=== PATIENT | female | born 1955 | race Caucasian/White ===

== ENCOUNTER 2017-08-19 08:00 | Outpatient (CLI) | payer OTHER | END 2017-08-19 08:01 | disposition home or self-care (01) | LOC: LAB.R 08:00 | PROVIDERS: ATTEND Family Medicine | DX: N39.0 Urinary tract infection, site not specified (principal) | CPT/HCPCS: 87086 ==

== ENCOUNTER 2017-09-02 08:00 | Outpatient (CLI) | payer OTHER | END 2017-09-02 08:01 | disposition home or self-care (01) | LOC: LAB.R 08:00 | PROVIDERS: ATTEND Family Medicine | DX: N39.0 Urinary tract infection, site not specified (principal) | CPT/HCPCS: 87086 ==

== ENCOUNTER 2018-09-22 10:34 | Outpatient (CLI) | payer OTHER, BC ==
--- NOTE | 2018-09-22 11:28 | XRAY Report ---
Reason: KNEE PAIN,RIGHT Procedure Date: 09/22/2018 Accession Number: [id number] / [id number] Procedure: WCP - Knee 3 View RT CPT Code: FULL RESULT: EXAM: RIGHT KNEE RADIOGRAPHY EXAM DATE: 09/22/2018 10:45 AM. CLINICAL HISTORY: Chronic knee pain, right. COMPARISON: KNEE 2 VIEW LT 05/05/2018 2:23 PM. TECHNIQUE: 3 views. FINDINGS: Bones: Normal. No fractures or bone lesions. Joints: Well rounded calcific bodies are seen projecting over the joint space and popliteal fossa on the lateral view. There is a joint effusion. There is at least mild to moderate joint space narrowing of the weightbearing compartments. [place] view demonstrates mild joint space narrowing of the lateral patellar facet with lateral translation and marginal osteophytosis. Medial facet of the patella demonstrates a possible irregularity of the osseous surface. Soft Tissues: Normal. No soft tissue swelling. IMPRESSION: Tricompartmental degenerative changes with possible defect on the medial aspect of the patella. RADIA
== END 2018-09-22 10:35 | disposition home or self-care (01) ==
LOC: DI.WCP 10:34
PROVIDERS: ATTEND Family Medicine
DX: M17.11 Unilateral primary osteoarthritis, right knee (principal)

== ENCOUNTER 2018-10-01 11:40 | Outpatient (CLI) | payer BC, OTHER ==
--- NOTE | 2018-10-01 12:06 | CT Report ---
Reason: DIZZINESS/VERTIGO Procedure Date: 10/01/2018 Accession Number: [id number] / [id number] Procedure: CT - HEAD WO CPT Code: FULL RESULT: EXAM: CT HEAD EXAM DATE: 10/01/2018 11:54 AM. CLINICAL HISTORY: DIZZINESS/VERTIGO. COMPARISON: None. TECHNIQUE: Multiaxial CT images were obtained from the foramen magnum to the vertex. Reformats: Sagittal and coronal. IV contrast: None. In accordance with CT protocol optimization, one or more of the following dose reduction techniques were utilized for this exam: automated exposure control, adjustment of mA and/or KV based on patient size, or use of iterative reconstructive technique. FINDINGS: Parenchyma: No acute intracranial abnormality. No mass-effect or hemorrhage. There is a small nonspecific presumed chronic region of low density in the left subcortical keith matter. There are 2 similar-appearing low-density lesions in the left parietal subcortical white matter. Extraaxial Spaces: Normal for age. No subdural or epidural collections identified. Ventricles: Normal in size and position. Sinuses and Orbits: Imaged paranasal sinuses, orbits, and mastoids show no significant abnormality. Bones: No evidence of fracture or calvarial defect. Other: None. IMPRESSION: 1. No acute intracranial process. No evidence of hemorrhage or mass-effect. 2. There are 2 small nonspecific regions of subcortical white matter low density located in the left frontal lobe and left parietal lobe, respectively. No associated mass-effect or edema. Consider MRI brain without and with IV contrast for further evaluation. RADIA
== END 2018-10-01 11:41 | disposition home or self-care (01) ==
LOC: DI 11:40
PROVIDERS: ATTEND Family Medicine
DX: R42 Dizziness and giddiness (principal)
CPT/HCPCS: 70450

== ENCOUNTER 2018-10-03 08:01 | Outpatient (CLI) | payer OTHER, BC ==
[2018-10-03] MEDS ORDERED: GADOBUTROL 10 MMOL/10 ML VIAL IV ONE (08:55)
--- NOTE | 2018-10-05 09:26 | MRI Report ---
Reason: ABNORMAL FINDINGS ON DIAGNOSTIC IMAGING OF OTHER S Procedure Date: 10/03/2018 Accession Number: [id number] / [id number] Procedure: MRI - Brain W/WO CPT Code: FULL RESULT: EXAM: MRI BRAIN WITHOUT AND WITH CONTRAST EXAM DATE: 10/03/2018 09:00 AM. CLINICAL HISTORY: Abnormal CT findings in the setting of dizziness/vertigo COMPARISON: CT head 10/01/2018. TECHNIQUE: Multiplanar, multisequence T1-weighted and fluid-sensitive MR sequences of the brain were performed. Sequences optimized for routine evaluation. Other: None. IV Contrast: Without and with contrast, 8.5 cc of Gadavist. FINDINGS: Multifocal greater than 10 diffusion restriction demonstrated in the subcortical frontal and parietal white matter including in the subcortical superior frontal lobes, right lateral callosal genu, right posterior allred radiata, left posterior allred radiata and subcortical left parietal lobe and left temporal stem. There is a focal diffusion restriction in the left posterior allred radiata which demonstrates central hypointensity/FLAIR hypointensity. There is chronic infarct in the left thalamus. There is also chronic infarct in the left anterior centrum semiovale. Postcontrast sequence demonstrates no abnormal enhancement. In the infratentorial compartment, minimal ill-defined T2 hyperintensity seen in the right paracentral mike. Limited evaluation of the arterial and dural venous sinus structures appear unremarkable. Gradient echo sequence demonstrates no focal abnormalities. There is no abnormal enhancement along the internal auditory canals or membranous labyrinth. IMPRESSION: 1. Multifocal greater than 10 foci of diffusion abnormalities are seen throughout the cerebral white matter. There are T1 hypointense, T2 FLAIR hyperintense lesions typical for chronic lacunar type infarcts in the anterior left centrum semiovale, posterior left allred radiata and left thalamus. 2. Differential consideration includes multifocal acute lacunar type infarcts in the setting of severe uncontrolled microvascular angiopathy (hypertension/diabetes), inflammatory disorder such as vasculitis, another possibility is demyelinating disease although the lack of enhancement associated with diffusion abnormality is atypical for acute demyelination and multiple sclerosis. 3. Suggest further evaluation with CT angiogram head and neck as well as Neurology consultation. The call report notification system was initiated by Dr. Ezequiel Gross at 08:47 AM on 10/05/2018. The above call report findings were discussed with Connie Cooper by Dr. Ezequiel Gross at 09:16 AM on 10/05/2018.
== END 2018-10-03 08:02 | disposition home or self-care (01) ==
LOC: DI 08:01
PROVIDERS: ATTEND Family Medicine
DX: G93.9 Disorder of brain, unspecified (principal); R42 Dizziness and giddiness
CPT/HCPCS: 70553

== ENCOUNTER 2018-10-06 17:43 | Outpatient (CLI) | payer OTHER, BC ==
[2018-10-06] MEDS ORDERED: IOVERSOL 320 100 ML VIAL IVP ONE ×2 (17:58→18:27)
--- NOTE | 2018-10-06 20:14 | CT Report ---
Reason: CVA,ABNORMAL FINDINGS ON DIAGNOSTIC IMGAING OF OTH Procedure Date: 10/06/2018 Accession Number: [id number] / [id number] Procedure: CT - ANGIO HEAD W CPT Code: FULL RESULT: EXAM: CT ANGIOGRAM HEAD. CT SCAN OF THE HEAD WITHOUT AND WITH CONTRAST. EXAM DATE: 10/06/2018 06:19 PM CLINICAL HISTORY: 63-year-old female with history of cerebrovascular accident and headaches. Abnormal findings on previous imaging COMPARISON: CT head 10/01/2018, MR brain 10/03/2018 TECHNIQUE: - CT Scan Head: Using a multidetector scanner, axial images were acquired from the foramen magnum to the skull vertex prior to and following contrast administration. - CT Angiogram: Using a multidetector scanner, high-resolution axial images were acquired from the skull base through vertex following rapid infusion of intravenous contrast. Reformats: Multiplanar MIP reformats were reconstructed. Nascet criteria used for stenosis measurement. IV Contrast: 80 cc Optiray [address] protocol optimization, one or more of the following dose reduction techniques were utilized for this exam: automated exposure control, adjustment of mA and/or KV based on patient size, or use of iterative reconstructive technique. FINDINGS: NON-CONTRAST HEAD: Parenchyma: As better demonstrated on the prior MR on 10/03/2018, the CT also demonstrates multiple small recent infarctions as evidenced by parenchymal hypodensities within cerebral hemispheres bilaterally. No large territorial infarction. No hemorrhagic transformation. No intraparenchymal hemorrhage. No evidence of mass, or midline shift. Jesus-white differentiation is distinct. Extraaxial Spaces: Normal for age. No subdural or epidural collections identified. Ventricles: Normal in size and position. Sinuses and orbits: Imaged paranasal sinuses, orbits, and mastoids show no significant abnormality. Bones: No evidence of fracture or calvarial defect. Other: None. POST-CONTRAST HEAD: No abnormal enhancement. CT ANGIOGRAM HEAD: RIGHT: Internal Carotid artery: Mild atherosclerosis, no hemodynamically significant narrowing Anterior Cerebral Artery: Patent without significant stenosis, aneurysm, or vascular malformation. Middle Cerebral Artery: Patent without significant stenosis, aneurysm, or vascular malformation. Posterior Cerebral Artery: Patent without significant stenosis, aneurysm, or vascular malformation. Posterior Communicating Artery: Patent. No aneurysm. Vertebral Artery: The dominant vertebral artery. Patent without significant stenosis. No evidence of dissection. LEFT: Internal Carotid artery: Mild atherosclerosis, no hemodynamically significant narrowing Anterior Cerebral Artery: Patent without significant stenosis, aneurysm, or vascular malformation. Middle Cerebral Artery: Patent without significant stenosis, aneurysm, or vascular malformation. Posterior Cerebral Artery: origin. Patent without significant stenosis, aneurysm, or vascular malformation. Posterior Communicating Artery: Patent. No aneurysm. Vertebral Artery: There is PICA termination of the small left vertebral artery Patent without significant stenosis. No evidence of dissection. CENTRAL: Anterior Communicating Artery: Patent. No aneurysm. Basilar Artery: Patent without significant stenosis. No aneurysm. DURAL VENOUS SINUSES AND MAJOR CENTRAL VEINS: Patent. IMPRESSION: CT Head: As better demonstrated on the prior MR on 10/03/2018, the CT also demonstrates multiple small recent infarctions as evidenced by parenchymal hypodensities within cerebral hemispheres bilaterally. No large territorial infarction. No hemorrhagic transformation. CTA Head: Mild atherosclerosis detailed above. No significant vascular stenosis, dissection, or aneurysm. RADIA
--- NOTE | 2018-10-06 20:23 | CT Report ---
Reason: CVA,ABNORMAL FINDINGS ON DIAGNOSTIC IMGAING OF [facility] Procedure Date: 10/06/2018 Accession Number: [id number] / [id number] Procedure: CT - ANGIO NECK W/WO CPT Code: FULL RESULT: EXAM: CT ANGIOGRAM NECK EXAM DATE: 10/06/2018 06:19 PM. CLINICAL HISTORY: 62-year-old female. Cerebrovascular accident, headaches. Abnormal findings on prior study. COMPARISON: Concurrently obtained CTA head, MR brain 10/03/2018 TECHNIQUE: Routine axial helical imaging was performed from the skull base through the aortic arch. Reconstructions: Routine multiplanar 3D MIP reconstructions. IV Contrast: 80 cc Optiray 320. Evaluation of arterial stenosis is based on a NASCET method of measurement. In accordance with CT protocol optimization, one or more of the following dose reduction techniques were utilized for this exam: automated exposure control, adjustment of mA and/or KV based on patient size, or use of iterative reconstructive technique. FINDINGS: Right Carotid: The common carotid, internal carotid, and external carotid arteries are widely patent. No dissection, significant atherosclerotic plaque, or calcification identified. Left Carotid: The common carotid, internal carotid, and external carotid arteries are widely patent. No dissection, significant atherosclerotic plaque, or calcification identified. Vertebrals: The right vertebral artery is dominant. There is PICA termination of the small left vertebral artery The vertebrobasilar system shows no stenoses. Intracranial Circulation: Concurrently obtained CTA head is dictated separately. Other: The visualized lung apices are clear. Mild to moderate multilevel degenerative spondylosis. The visualized soft tissues of the neck demonstrate no acute abnormality. IMPRESSION: 1. Unremarkable neck CT angiogram. No hemodynamically significant stenoses. 2. Concurrently obtained CTA head is dictated separately. RADIA
== END 2018-10-06 17:44 | disposition home or self-care (01) ==
LOC: DI 17:43
PROVIDERS: ATTEND Family Medicine
DX: I63.9 Cerebral infarction, unspecified (principal); R93.89 Abnormal findings on diagnostic imaging of other specified body structures; R42 Dizziness and giddiness; I65.23 Occlusion and stenosis of bilateral carotid arteries
CPT/HCPCS: 70496; 70498; Q9967

== ENCOUNTER 2018-10-07 08:55 | Outpatient (CLI) | payer OTHER, BC | END 2018-10-07 08:56 | disposition home or self-care (01) | LOC: DI 08:55 | PROVIDERS: ATTEND Family Medicine | DX: I63.9 Cerebral infarction, unspecified (principal); R42 Dizziness and giddiness; R93.89 Abnormal findings on diagnostic imaging of other specified body structures | CPT/HCPCS: 93306 ==

== ENCOUNTER 2018-10-31 11:31 | Emergency (ER) | payer BC, OTHER ==
--- NOTE | 2018-10-31 11:59 | ED Physician Documentation ---
PD HPI HEAD INJURY - Stated complaint Stated Complaint: FALL/BEHAVIOR CHANGE - Chief complaint Chief Complaint: Trauma Hd/Nk - History obtained from History obtained from: Patient, Family - History of Present Illness Mechanism of head injury: Fell Where head injury occurred: Home Timing - onset: Yesterday Quality of pain: Pain Associated symptoms: Other (acting withdrawn having problems with falls). No: LOC, AMS, Amnesia, Nausea / vomiting, Neck pain, Paresthesias, Seizures, Ear drainage, Nasal drainage Symptoms improve with: Rest Contributing factors: Anticoagulated (clopidigrel) Similar symptoms before: Has not had sx before Recently seen: Other - Additional information Additional information: 63-year-old female who has had some problems with falls recently has fallen and hit her head. Family notes that she has been withdrawn today and not acting her usual self. They are concerned and brought her here to the emergency department she has not vomited the patient herself states that she does not feel well but is not more specific than that. She has a headache but not a specific area of her head hurts. She has been recently worked up for these falls and including echocardiogram recently done. She is on a monitor as she has had prior CVA which was unrecognized.She has a problem with her blood pressure elevating when she stands. PD PAST MEDICAL HISTORY - Past Medical History Endocrine/Autoimmune: Type 2 diabetes GI: GERD Musculoskeletal: Chronic back pain - Past Surgical History Past Surgical History: Yes General: Cholecystectomy HEENT: Tonsil/Adenoidectomy - Present Medications Home Medications: Ambulatory Orders Medication Instructions Recorded Confirmed Atenolol 0 mg ORAL DAILY 01/07/16 01/07/16 Hydrocodone/Acetaminophen [Vicodin 1 tab ORAL TID PRN 01/07/16 01/07/16 5-300 mg Tablet] Levothyroxine [Synthroid] 0 mcg ORAL DAILY 01/07/16 01/07/16 Lisinopril 0 mg ORAL DAILY 01/07/16 01/07/16 Loperamide HCl [Imodium A-D] 1 tab ORAL DAILY 01/07/16 01/07/16 Multivitamin [Multivitamins] 1 tab ORAL DAILY 01/07/16 01/07/16 [place]-3 Fatty Acids [Fish Oil] 1 tab ORAL DAILY 01/07/16 01/07/16 Omeprazole [PriLOSEC] 0 mg ORAL DAILY 01/07/16 01/07/16 metFORMIN [Glucophage] 0 mg ORAL DAILY 01/07/16 01/07/16 - Allergies Allergies/Adverse Reactions: Allergies Allergy/AdvReac Type Severity Reaction Status Date / Time pseudoephedrine HCl * Allergy Rash Verified 01/07/16 18:30 [From Actifed] triprolidine HCl * Allergy Rash Verified 10/31/18 11:38 [From Actifed] - Social History Does the pt smoke?: No Smoking Status: Never smoker Does the pt drink ETOH?: Yes Does the pt have substance abuse?: No - Immunizations Immunizations are current?: Yes PD ED PE NORMAL - Vitals Vital signs reviewed: Yes - General General: Alert and oriented X 3, Well developed/nourished, Other (with drawn and prefers eyes closed. ) - HEENT HEENT: Atraumatic, PERRL, EOMI, Ears normal - Neck Neck: Supple, no meningeal sign, No bony TTP - Cardiac Cardiac: No murmur, Other (tachy to 120) - Respiratory Respiratory: No respiratory distress, Clear bilaterally - Abdomen Abdomen: Normal bowel sounds, Soft, Non tender, Non distended, No organomegaly - Back Back: No CVA TTP, No spinal TTP - Derm Derm: Normal color, Warm and dry, No rash - Extremities Extremities: No deformity, No edema - Neuro Neuro: Alert and oriented X 3, development educator 2-12 intact, No motor deficit, No sensory deficit, Normal speech Eye Opening: Spontaneous Motor: Obeys Commands Verbal: Oriented GCS Score: 15 - Psych Psych: Normal mood, Normal affect Results - Vitals Vitals: Vital Signs - 24 hr 10/31/18 10/31/18 10/31/18 11:35 12:47 15:19 Temperature 36.3 C L Heart Rate 115 H 101 H 88 Respiratory 20 20 19 Rate Blood Pressure 146/86 H 131/84 H 170/90 H O2 Saturation 95 98 100 Oxygen O2 Source Room air - Labs Labs: Laboratory Tests 10/31/18 10/31/18 10/31/18 11:05 11:05 11:05 WBC 7.5 RBC 3.92 L Hgb 13.7 Hct 38.9 MCV 99.2 H MCH 34.9 H MCHC 35.2 RDW 11.9 L Plt Count 258 MPV 9.8 Neut # (Auto) 4.9 Lymph # (Auto) 1.8 [place] # (Auto) 0.6 Eos # (Auto) 0.2 Baso # (Auto) 0.0 Absolute Nucleated RBC 0.00 Nucleated RBC % 0.0 Sodium 141 Potassium 4.6 Chloride 101 Carbon Dioxide 24 Anion Gap 16.0 H BUN 20 Creatinine 1.3 H Estimated GFR (MDRD) 41 L Glucose 114 H Calcium 10.1 Total Bilirubin 1.2 H AST 30 ALT 28 Alkaline Phosphatase 91 Troponin I < 0.04 Total Protein 8.1 Albumin 4.5 Globulin 3.6 Albumin/Globulin Ratio 1.3 Lipase 18 L Urine Color Urine Clarity Urine pH Ur Specific [place] Urine Protein Urine Glucose (UA) Urine Ketones Urine Occult Blood Urine Nitrite Urine Bilirubin Urine Urobilinogen Ur Leukocyte Esterase Ur Microscopic Review Urine Culture Comments Urine Opiates Screen Ur Oxycodone Screen Urine Methadone Screen Ur Propoxyphene Screen Ur Barbiturates Screen Ur Tricyclics Screen Ur Phencyclidine Scrn Ur Amphetamine Screen U Methamphetamines Scrn U Benzodiazepines Scrn Urine Cocaine Screen U Cannabinoids Screen Ethyl Alcohol < 5.0 10/31/18 11:55 WBC RBC Hgb Hct MCV MCH MCHC RDW Plt Count MPV Neut # (Auto) Lymph # (Auto) [place] # (Auto) Eos # (Auto) Baso # (Auto) Absolute Nucleated RBC Nucleated RBC % Sodium Potassium Chloride Carbon Dioxide Anion Gap BUN Creatinine Estimated GFR (MDRD) Glucose Calcium Total Bilirubin AST ALT Alkaline Phosphatase Troponin I Total Protein Albumin Globulin Albumin/Globulin Ratio Lipase Urine Color YELLOW Urine Clarity CLEAR Urine pH 6.5 Ur Specific [place] <=1.005 Urine Protein TRACE Urine Glucose (UA) NEGATIVE Urine Ketones TRACE Urine Occult Blood NEGATIVE Urine Nitrite NEGATIVE Urine Bilirubin NEGATIVE Urine Urobilinogen 0.2 (NORMAL) Ur Leukocyte Esterase NEGATIVE Ur Microscopic Review NOT INDICATED Urine Culture Comments NOT INDICATED Urine Opiates Screen POSITIVE H Ur Oxycodone Screen NEGATIVE Urine Methadone Screen NEGATIVE Ur Propoxyphene Screen NEGATIVE Ur Barbiturates Screen NEGATIVE Ur Tricyclics Screen POSITIVE H Ur Phencyclidine Scrn NEGATIVE Ur Amphetamine Screen NEGATIVE U Methamphetamines Scrn NEGATIVE U Benzodiazepines Scrn NEGATIVE Urine Cocaine Screen NEGATIVE U Cannabinoids Screen NEGATIVE Ethyl Alcohol - Rads (name of study) CT head Radiology: Prelim report reviewed (Impression: 1. No intracranial hemorrhage or skull fracture. Moderate patchy chronic small vessel ischemic change in the bi lateral cerebral white matter, as before. No current CT evidence of acute CVA.), EMP read indepedently, See rad report Procedures - IVC sono (time) 1155 Bedside IVC sono: IVC measures (cm) (0.92), Dehydration (est 1-2 liter deficit) PD MEDICAL DECISION MAKING - ED course Complexity details: reviewed old records, reviewed results, re-evaluated patient, considered differential, d/w patient, d/w family ED course: 63 y/o female with prior history of silent CVA and TIA has had an episode yesterday of word searching and confusion, associated with caring for her grandchildren. She is not confused today and appears to be interacting normally has an NIHSS of 0. She is tachy and hypertensive on arrival to the ED and she is found to be dehydrated on interrogation of the IVC, and significantly, on the order of 2 liter deficit. She is diabetic and I suspect she may be running dry chronically. She is hydrated with 2 liters NS with improvement and she is discharged to home. I suspect the event she had yesterday is related to the dehydration and transient ischemia to a poorly supplied area. I have shared this with the patient and her family and she will work harder on staying hydrated. She is being monitored for afib as part of outpatient work up. She did not have afib here. I did discuss alcohol and narcotic use with the patient and I did not think the episode yesterday was related to either. Departure - Departure Disposition: 01 Home, Self Care Clinical Impression: Dehydration, TIA (transient ischemic attack) Condition: Stable Instructions: ED Dehydration, ED Transient Ischemic Attack Follow-Up: Connie Cooper MD [Primary Care Provider] -
[2018-10-31 12:36] LABS: BASOPHILS % (AUTO) 0.5 %; EOSINOPHILS # (AUTO) 0.2 10^3/uL (0.0-0.7); HGB - HEMOGLOBIN 13.7 g/dL (12.0-16.0); LYMPHOCYTES # (AUTO) 1.8 10^3/uL (1.5-3.5); LYMPHOCYTES % (AUTO) 23.8 %; MEAN CORPUSCULAR HEMOGLOBIN 34.9 pg (27.0-31.0); MEAN CORPUSCULAR HGB CONC 35.2 g/dL (32.0-36.0); MEAN CORPUSCULAR VOLUME 99.2 fL (81.0-99.0); MEAN PLATELET VOLUME 9.8 fL (7.9-10.8); MONOCYTES # (AUTO) 0.6 10^3/uL (0.0-1.0); MONOCYTES % (AUTO) 7.6 %; NEUTROPHILS # (AUTO) 4.9 10^3/uL (1.5-6.6); NEUTROPHILS % (AUTO) 65.2 %; PLT - PLATELET COUNT 258 10^3/uL (130-450); RED BLOOD COUNT 3.92 10^6/uL (4.20-5.40); RED CELL DISTRIBUTION WIDTH 11.9 % (12.0-15.0); WHITE BLOOD COUNT 7.5 x10^3/uL (4.8-10.8)
--- NOTE | 2018-10-31 12:43 | CT Report ---
Reason: fall altered LOC Procedure Date: 10/31/2018 Accession Number: [id number] / [id number] Procedure: CT - HEAD WO CPT Code: FULL RESULT: EXAM: CT HEAD EXAM DATE: 10/31/2018 12:19 PM. CLINICAL HISTORY: Fall altered LOC. COMPARISON: HEAD ANGIO 10/06/2018 6:10 PM BRAIN W/WO 10/03/2018 8:28 AM. TECHNIQUE: Multiaxial CT images were obtained from the foramen magnum to the vertex. Reformats: Sagittal and coronal. IV contrast: None. In accordance with CT protocol optimization, one or more of the following dose reduction techniques were utilized for this exam: automated exposure control, adjustment of mA and/or KV based on patient size, or use of iterative reconstructive technique. FINDINGS: Parenchyma: As before, there is moderate patchy hypodensity in the bilateral cerebral white matter consistent with chronic small vessel ischemic change. No new lobar or high density lesions are identified. No mass-effect. Jesus-white differentiation is intact. Extraaxial Spaces: Normal for age. No subdural or epidural collections identified. Ventricles: Normal in size and position. Sinuses and Orbits: Imaged paranasal sinuses, orbits, and mastoids show no significant abnormality. There is opacification of an anterior left ethmoid air cell, as before. Bones: No evidence of fracture or calvarial defect. Other: No scalp contusion is identified. IMPRESSION: 1. No intracranial hemorrhage or skull fracture. 2. Moderate patchy chronic small vessel ischemic change in the bilateral cerebral white matter, as before. No current CT evidence of acute CVA. RADIA
[2018-10-31 12:50] LABS: ALBUMIN 4.5 g/dL (3.2-5.5); ALBUMIN/GLOBULIN RATIO 1.3 (1.0-2.2); ALKALINE PHOSPHATASE 91 IU/L (42-121); ALT ALANINE AMINOTRANSFERASE 28 IU/L (10-60); AST ASPARTATE AMINOTRANSFERASE 30 IU/L (10-42); BILIRUBIN,TOTAL 1.2 mg/dL (0.2-1.0); BUN - BLOOD UREA NITROGEN 20 mg/dL (6-20); CALCIUM 10.1 mg/dL (8.5-10.3); CARBON DIOXIDE - CO2 24 mmol/L (21-32); CHLORIDE 101 mmol/L (101-111); CREATININE 1.3 mg/dL (0.4-1.0); GFR - MDRD 41 (>89); GLUCOSE 114 mg/dL (70-100); LIPASE 18 U/L (22-51); SODIUM 141 mmol/L (135-145); TOTAL PROTEIN 8.1 g/dL (6.7-8.2)
[2018-10-31] MEDS ORDERED: SODIUM CHLORIDE 0.9% 1,000 ML IV ONE ×2 (12:56→14:04)
[2018-10-31 13:06] LABS: MUDS CUTOFF CONCENTRATIONS CUTOFF CONC BELOW:
[2018-10-31 13:08] LABS: BILIRUBIN,URINE NEGATIVE (NEGATIVE); GLUCOSE, URINE (UA) NEGATIVE (NEGATIVE); KETONES,URINE (UA) TRACE mg/dL (NEGATIVE); LEUKOCYTE ESTERASE, URINE NEGATIVE (NEGATIVE); NITRITE,URINE NEGATIVE (NEGATIVE); OCCULT BLOOD,URINE NEGATIVE (NEGATIVE); PH,URINE 6.5 PH (5.0-7.5); PROTEIN,URINE TRACE mg/dL (NEGATIVE); UROBILINOGEN,URINE 0.2 (NORMAL) E.U./dL (NORMAL)
[2018-10-31 13:12] LABS: CLARITY,URINE CLEAR (CLEAR)
[2018-10-31 13:21] LABS: AMPHETAMINE SCREEN,URINE NEGATIVE (NEGATIVE); BENZODIAZEPINES SCREEN, URINE NEGATIVE (NEGATIVE); COCAINE SCREEN URINE NEGATIVE (NEGATIVE); METHADONE SCREEN, URINE NEGATIVE (NEGATIVE); METHAMPHETAMINES SCREEN, URINE NEGATIVE (NEGATIVE); OPIATE SCREEN, URINE POSITIVE (NEGATIVE); OXYCODONE SCREEN, URINE NEGATIVE (NEGATIVE); PROPOXYPHENE SCREEN, URINE NEGATIVE (NEGATIVE)
[2018-10-31 13:22] LABS: TRICYCLIC ANTIDEPRESSANT,URINE POSITIVE (NEGATIVE)
[2018-10-31 15:20] VITALS: BP 170/90
== END 2018-10-31 16:00 | disposition home or self-care (01) ==
LOC: ED 11:31
DX: E86.0 Dehydration (principal); G45.9 Transient cerebral ischemic attack, unspecified; E11.9 Type 2 diabetes mellitus without complications; Z86.73 Personal history of transient ischemic attack (TIA), and cerebral infarction without residual deficits
CPT/HCPCS: 36415; 70450; 80053; 80306; 80320; 81001; 81003; 83690; 84484; 85025; 87086; 96360; 96361; 99281

== ENCOUNTER 2018-11-10 08:00 | Outpatient (CLI) | payer BC, OTHER | END 2018-11-10 23:59 | disposition home or self-care (01) | LOC: LAB.R 08:00 | PROVIDERS: ATTEND Family Medicine | DX: N39.0 Urinary tract infection, site not specified (principal) | CPT/HCPCS: 87086 ==

== ENCOUNTER 2018-11-11 08:35 | Outpatient (CLI) | payer BC, OTHER ==
--- NOTE | 2018-11-11 20:38 | XRAY Report ---
Reason: KNEE PAIN, RIGHT Procedure Date: 11/11/2018 Accession Number: [id number] / [id number] Procedure: XR - Knee 3 View RT CPT Code: FULL RESULT: EXAM: RIGHT KNEE RADIOGRAPHY EXAM DATE: 11/11/2018 08:50 AM. CLINICAL HISTORY: KNEE PAIN, RIGHT. COMPARISON: KNEE 3 VIEW RT 09/22/2018 10:29 AM. TECHNIQUE: 3 views. FINDINGS: Bones: No acute fractures or suspicious bone lesions. Joints: Redemonstration of mild to moderate joint space narrowing of the lateral patellofemoral compartment with osteophyte formation. Previously described defect at the medial patella is not seen. Moderate effusion. Redemonstration of ovoid calcified bodies measuring up to 9 mm anteriorly, seen on the lateral view. Soft Tissues: Unremarkable. IMPRESSION: No interval change. 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 Possible intra-articular calcified bodies measuring up to 9 mm. Moderate joint effusion. RADIA
== END 2018-11-11 08:36 | disposition home or self-care (01) ==
LOC: DI 08:35
PROVIDERS: ATTEND Family Medicine
DX: M17.11 Unilateral primary osteoarthritis, right knee (principal); M25.461 Effusion, right knee

== ENCOUNTER 2019-05-02 17:43 | Outpatient (CLI) | payer OTHER | END 2019-05-02 17:44 | disposition EMS.NT | LOC: EMS 17:43 | PROVIDERS: ATTEND Surgery | DX: R07.9 Chest pain, unspecified (principal); V47.5XXA Car driver injured in collision with fixed or stationary object in traffic accident, initial encounter; Y92.410 Unspecified street and highway as the place of occurrence of the external cause ==

== ENCOUNTER 2020-03-08 08:00 | Outpatient (CLI) | payer MEDICARE | END 2020-03-08 23:59 | disposition home or self-care (01) | LOC: LAB.WCP 08:00 | PROVIDERS: ATTEND Physician Assistant Medical | DX: R39.15 Urgency of urination (principal) | CPT/HCPCS: 81002 ==

== ENCOUNTER 2020-03-09 07:00 | Outpatient (CLI) | payer MEDICARE, OTHER | END 2020-03-09 23:59 | disposition home or self-care (01) | LOC: LAB.R 07:00 | PROVIDERS: ATTEND Physician Assistant Medical | DX: R39.15 Urgency of urination (principal) | CPT/HCPCS: 87086 ==

== ENCOUNTER 2020-03-29 10:13 | Outpatient (CLI) | payer MEDICARE | END 2020-03-29 10:14 | disposition home or self-care (01) | LOC: DI 10:13 | PROVIDERS: ATTEND Physician Assistant Medical | DX: I77.819 Aortic ectasia, unspecified site (principal) | CPT/HCPCS: 93306 ==

== ENCOUNTER 2020-05-12 16:30 | Outpatient (CLI) | payer MEDICARE ==
[2020-05-12 18:38] LABS: HEMOGLOBIN A1c% 9.8 % (4.27-6.07)
== END 2020-05-12 23:59 | disposition home or self-care (01) ==
LOC: LAB.WCP 16:30
PROVIDERS: ATTEND Physician Assistant Medical
DX: E11.29 Type 2 diabetes mellitus with other diabetic kidney complication (principal)
CPT/HCPCS: 36415; 83036

== ENCOUNTER 2020-08-24 15:55 | Outpatient (CLI) | payer MEDICARE ==
--- NOTE | 2020-08-24 19:11 | XRAY Report ---
PROCEDURE: Cervical Spine Complete INDICATIONS: CERVICAL SPONDYLOSIS TECHNIQUE: 6 view(s) of the cervical spine were acquired. COMPARISON: None. FINDINGS: Bones: No fractures or dislocations to the C7 level. The lateral masses of C1 appear intact on the odontoid view. No suspicious bony lesions. Oblique views show no gross facet arthropathy, although study is also limited by positioning. No foraminal stenosis in the upper cervical spine. Evaluation o f the lower cervical foramina are limited by positioning. Disc space narrowing and small anterior osteophytes noted at C5-6 and C6-7 Soft tissues: No prevertebral soft tissue swelling. IMPRESSION: 1. Mild lower lumbar spine degenerative disc disease and arthropathy. 2. Oblique images are limited by positioning Reviewed by: Braeden Paul MD on 08/24/2020 6:10 PM CHIKIS Approved by: Braeden Paul MD on 08/24/2020 6:10 PM [facility]IK[facility] Station ID: [id number]
== END 2020-08-24 15:56 | disposition home or self-care (01) ==
LOC: DI 15:55
PROVIDERS: ATTEND Pain Medicine Pain Medicine
DX: M47.812 Spondylosis without myelopathy or radiculopathy, cervical region (principal); M48.02 Spinal stenosis, cervical region; M51.36 Other intervertebral disc degeneration, lumbar region

== ENCOUNTER 2020-09-07 08:17 | Outpatient (CLI) | payer MEDICARE ==
--- NOTE | 2020-09-07 09:49 | XRAY Report ---
PROCEDURE: Knee 3 View LT INDICATIONS: CONTUSION OF LEFT KNEE TECHNIQUE: 3 views of the left knee(s) were acquired. COMPARISON: X-ray left knee, 2 views, 05/05/2018. FINDINGS: Bones: No fractures or dislocations. No suspicious bony lesions. There is [id number] tricomp artmental osteoarthritis of the left knee. Lateral tilt of patella. Soft tissues: Small joint effusion. No suspicious soft tissue calcifications. IMPRESSION: 1. Mild to-moderate tricompartmental osteoarthritis. 2. Lateral tilt of patella. 3. Small knee joint effusion. Reviewed by: Sharan Dillard MD on 09/07/2020 9:47 AM PDT Approved by: Sharan Dillard MD on 09/07/2020 9:47 AM PDT Station ID: [id number]
== END 2020-09-07 23:59 | disposition home or self-care (01) ==
LOC: DI.N 08:17
PROVIDERS: ATTEND Family Medicine
DX: M17.12 Unilateral primary osteoarthritis, left knee (principal); M25.462 Effusion, left knee

== ENCOUNTER 2020-10-30 09:58 | Outpatient (CLI) | payer MEDICARE ==
--- NOTE | 2020-10-30 16:29 | Ultrasound Report ---
PROCEDURE: Retroperitoneal INDICATIONS: STAGE G3 KIDNEY DISEASE TECHNIQUE: Real-time scanning was performed of the retroperitoneal organs, with image documentation. COMPARISON: None. FINDINGS: Kidneys: Kidneys are normal in size. 5 mm right upper pole renal cyst. Right kidney measures 10.2 cm long; left kidney measures 11.2 cm long. Right renal cortical thickness is 1.1 cm; left renal corti jannie thickness is 1.1 cm. No solid masses, hydronephrosis, or nephrolithiasis. Prevoid urinary bladder volume is 50 cc. Postvoid residual is 70 cc (patient unable to void). Bilater al ureteral jets are seen. IMPRESSION: Negative examination. Reviewed by: Charo Willson MD on 10/30/2020 4:28 PM PDT Approved by: Charo Willson MD on 10/30/2020 4:28 PM PDT Station ID: [id number]
== END 2020-10-30 09:59 | disposition home or self-care (01) ==
LOC: DI 09:58
PROVIDERS: ATTEND Internal Medicine Nephrology
DX: N18.30 Chronic kidney disease, stage 3 unspecified (principal)

== ENCOUNTER 2021-07-19 13:23 | Outpatient (CLI) | payer MEDICARE ==
--- NOTE | 2021-07-20 15:09 | Mammography Report ---
BILATERAL DIGITAL SCREENING MAMMOGRAM 3D/2D: 07/19/2021 CLINICAL: Routine screening. Comparison is made to exam dated: 08/11/2012 mammogram - [facility]. The tissue of both breasts is predominantly fatty. No significant masses, calcifications, or other findings are seen in either breast. There has been no significant interval change. IMPRESSION: NEGATIVE There is no mammographic evidence of malignancy. A 1 year screening mammogram is recommended. This exam was interpreted at Station ID: [id number]. NOTE: For mammograms, a report in lay terms will be sent to the patient. Approximately 15% of breast malignancies will not be visualized mammographically. In the management of a palpable breast mass, a negative mammogram must not discourage biopsy of a clinically suspicious lesion. Electronically Signed By: Frank james/dolly:07/19/2021 15:39:39 ACR BI-RADS Category 1: Negative 3341F PARENCHYMAL PATTERN: (F) - The breast(s) demonstrate(s) diffuse fatty replacement. BI-RADS CATEGORY: (1) - 1 RECOMMENDATION: (ANNUAL) - Recommend routine annual screening mammography. [id number] 1 year screening LATERALITY: (B)
== END 2021-07-19 13:24 | disposition home or self-care (01) ==
LOC: DI.N 13:23
DX: Z12.31 Encounter for screening mammogram for malignant neoplasm of breast (principal)

== ENCOUNTER 2021-09-04 07:20 | Day surgery (SDC) | payer MEDICARE ==
[2021-09-04] MEDS ORDERED: LACTATED RINGERS 1,000 ML IV ONE ×2 (07:23→08:49)
--- NOTE | 2021-09-04 07:50 | ANESTHESIA ---
Pre-Anesthesia VS, & Labs - Diagnosis family history of colon polyps, positive cologuard - Procedure colonoscopy Vital Signs: Temp Pulse Resp BP Pulse Ox 36 C L 95 16 135/86 H 98 09/04/21 07:26 09/04/21 07:26 09/04/21 07:26 09/04/21 07:26 09/04/21 07:26 Height: 5 ft 4 in Weight (kg): 87 kg Body Mass Index: 32.9 BMI Classification: Obese - NPO >8 hours - Is Patient ?: No - Lab Results Current Lab Results: Laboratory Tests 09/04/21 07:39: POC Whole Bld Glucose 112 H Lab results reviewed: Yes Home Medications and Allergies Home Medications: Ambulatory Orders ALPRAZolam [Alprazolam] 0.5 mg PO ONCE MDD as need 08/31/21 Atorvastatin Calcium [Lipitor] 80 mg PO QPM 08/31/21 Biotin 1,000 mcg PO DAILY 08/31/21 Carvedilol [Coreg] 6.25 mg PO BID 08/31/21 Cholecalciferol (Vitamin D3) [Vitamin D3] 4,000 unit PO DAILY 08/31/21 Cyclobenzaprine [Flexeril] 10 mg PO TID PRN 08/31/21 Dulaglutide [Trulicity] 0.5 ml SQ OAW 08/31/21 Nortriptyline [Pamelor] 75 mg PO QPM 08/31/21 Levothyroxine [Synthroid] 50 mcg ORAL DAILY 01/07/16 Lisinopril 40 mg ORAL DAILY 01/07/16 Multivitamin [Multivitamins] 1 tab ORAL DAILY 01/07/16 [place]-3 Fatty Acids [Fish Oil] 1 tab ORAL DAILY 01/07/16 Omeprazole [PriLOSEC] 20 mg ORAL DAILY 01/07/16 Clopidogrel [Plavix] 75 mg PO DAILY 02/13/21 Hydrocodone/Acetaminophen [Hydrocodone-Acetamin 5-300 mg] 1 each PO BID 02/13/21 Insulin Glargine [Lantus Solostar] 70 unit SUBQ DAILY 02/13/21 PARoxetine HCl [Paxil] 40 mg PO DAILY 02/13/21 ALPRAZolam [Alprazolam] 0.5 mg PO ONCE MDD as need 08/31/21 Atorvastatin Calcium [Lipitor] 80 mg PO QPM 08/31/21 Biotin 1,000 mcg PO DAILY 08/31/21 Carvedilol [Coreg] 6.25 mg PO BID 08/31/21 Cholecalciferol (Vitamin D3) [Vitamin D3] 4,000 unit PO DAILY 08/31/21 Cyclobenzaprine [Flexeril] 10 mg PO TID PRN 08/31/21 Dulaglutide [Trulicity] 0.5 ml SQ OAW 08/31/21 Nortriptyline [Pamelor] 75 mg PO QPM 08/31/21 Allergies/Adverse Reactions: Allergies Allergy/AdvReac Type Severity Reaction Status Date / Time No Known Drug Allergies Allergy Verified 08/31/21 13:05 Anes History & Medical History - Anesthetic History Anesthesia Complications: reports: No previous complications Family history of Anesthesia Complications: Denies Family history of Malignant Hyperthermia: Denies - Medical History Cardiovascular: reports: Hypertension, High cholesterol, Murmur Pulmonary: reports: None Gastrointestinal: reports: GERD Urinary: reports: None Musculoskeletal: Endocrine/Autoimmune: reports: Type 2 diabetes, HyPOthyroidism Skin: reports: None Smoking Status: Never smoker - Surgical History General: reports: Cholecystectomy, Colonoscopy Eyes Ears Nose Throat (EENT): reports: Tonsil/Adenoidectomy Gynecologic: reports: Breast reduction Results - Echo Results Echo Results: Report reviewed Exam General: Alert, Oriented x3, Cooperative, No acute distress Dental: Dentures full Upper, Dentures full Lower Mouth Openin Fingerbreadth Neck Mobility: Normal Mallampati classification: II Plan Anesthesia Type: General, Total IV Consent for Procedure(s) Verified and Reviewed: Yes Code Status: Attempt Resuscitation ASA classification: 3-Severe systemic disease Is this case an emergency?: No
[2021-09-04] MEDS ORDERED: PROPOFOL 500 MG/50 ML 500 MG/50 ML VIAL ONE (08:14)
[2021-09-04] MEDS ORDERED: MIDAZOLAM 2 MG/2 ML VIAL ONE (08:21)
[2021-09-04 09:25] VITALS: BP 115/741
--- NOTE | 2021-09-04 10:27 | ANESTHESIA POST OP EVALUATION ---
Anesthesia Post Eval - Post Anesthesia Eval Vitals: Last Vital Signs Temp 36.2 C L 09/04/21 09:23 Pulse 78 09/04/21 09:23 Resp 14 09/04/21 09:23 BP 115/741 H 09/04/21 09:23 Pulse Ox 96 09/04/21 09:23 CV Function Including HR & BP: Stable Pain Control: Satisfactory Nausea & Vomiting: Negative Mental Status: Baseline Respiratory Status: Airway Patent Hydration Status: Satisfactory Anesthesia Complications: None
== END 2021-09-04 07:21 | disposition home or self-care (01) ==
LOC: SDS 07:20
PROVIDERS: ATTEND Surgery
PROC: 0DBL8ZZ Excision of Transverse Colon, Via Natural or Artificial Opening Endoscopic (ICD-10-PCS; 2021-09-04)
PROC: 0DBN8ZZ Excision of Sigmoid Colon, Via Natural or Artificial Opening Endoscopic (ICD-10-PCS; 2021-09-04)
PROC: 0DBK8ZZ Excision of Ascending Colon, Via Natural or Artificial Opening Endoscopic (ICD-10-PCS; principal; 2021-09-04 08:30)
DX: R19.5 Other fecal abnormalities (principal); D12.2 Benign neoplasm of ascending colon; D12.3 Benign neoplasm of transverse colon; D12.5 Benign neoplasm of sigmoid colon; K57.30 Diverticulosis of large intestine without perforation or abscess without bleeding; Z83.71 Family history of colonic polyps; E11.21 Type 2 diabetes mellitus with diabetic nephropathy; E11.22 Type 2 diabetes mellitus with diabetic chronic kidney disease; I12.9 Hypertensive chronic kidney disease with stage 1 through stage 4 chronic kidney disease, or unspecified chronic kidney disease; N18.9 Chronic kidney disease, unspecified; K64.8 Other hemorrhoids; F41.8 Other specified anxiety disorders; E66.9 Obesity, unspecified; Z68.32 Body mass index [BMI] 32.0-32.9, adult
CPT/HCPCS: 45385; J7120

== ENCOUNTER 2021-11-05 06:32 | Day surgery (SDC) | payer MEDICARE ==
[2021-11-05] MEDS ORDERED: LACTATED RINGERS 1,000 ML IV ONE ×2 (06:55→08:38)
--- NOTE | 2021-11-05 06:58 | ANESTHESIA ---
Pre-Anesthesia VS, & Labs - Diagnosis positive cologuard - Procedure colonoscopy Vital Signs: Temp Pulse Resp BP Pulse Ox 36.2 C L 100 18 155/97 H 98 11/05/21 06:44 11/05/21 06:44 11/05/21 06:44 11/05/21 06:44 11/05/21 06:44 Height: 5 ft 4 in Weight (kg): 90.6 kg Body Mass Index: 34.2 BMI Classification: Obese - NPO >8 hours Last Fluid Intake: am prep - Is Patient ?: No - Lab Results Current Lab Results: Laboratory Tests 11/05/21 06:48: POC Whole Bld Glucose 80 Lab results reviewed: Yes Home Medications and Allergies Levothyroxine [Synthroid] 50 mcg ORAL DAILY 01/07/16 Lisinopril 40 mg ORAL DAILY 01/07/16 Multivitamin [Multivitamins] 1 tab ORAL DAILY 01/07/16 [place]-3 Fatty Acids [Fish Oil] 1 tab ORAL DAILY 01/07/16 Omeprazole [PriLOSEC] 20 mg ORAL DAILY 01/07/16 Clopidogrel [Plavix] 75 mg PO DAILY 02/13/21 Hydrocodone/Acetaminophen [Hydrocodone-Acetamin 5-300 mg] 1 each PO BID 02/13/21 Insulin Glargine [Lantus Solostar] 70 unit SUBQ DAILY 02/13/21 PARoxetine HCl [Paxil] 40 mg PO DAILY 02/13/21 ALPRAZolam [Alprazolam] 0.5 mg PO ONCE MDD as need 08/31/21 Atorvastatin Calcium [Lipitor] 80 mg PO QPM 08/31/21 Biotin 1,000 mcg PO DAILY 08/31/21 Carvedilol [Coreg] 6.25 mg PO BID 08/31/21 Cholecalciferol (Vitamin D3) [Vitamin D3] 4,000 unit PO DAILY 08/31/21 Cyclobenzaprine [Flexeril] 10 mg PO TID PRN 08/31/21 Dulaglutide [Trulicity] 0.5 ml SQ OAW 08/31/21 Nortriptyline [Pamelor] 75 mg PO QPM 08/31/21 Allergies/Adverse Reactions: Allergies Allergy/AdvReac Type Severity Reaction Status Date / Time No Known Drug Allergies Allergy Verified 08/31/21 13:05 Anes History & Medical History - Anesthetic History Anesthesia Complications: reports: No previous complications Family history of Anesthesia Complications: Denies Family history of Malignant Hyperthermia: Denies - Medical History Cardiovascular: reports: Hypertension, High cholesterol, Murmur Pulmonary: reports: None Gastrointestinal: reports: GERD Urinary: reports: None Musculoskeletal: reports: None Endocrine/Autoimmune: reports: Type 2 diabetes, HyPOthyroidism Skin: reports: None Smoking Status: Never smoker - Surgical History General: reports: Cholecystectomy, Colonoscopy Eyes Ears Nose Throat (EENT): reports: Tonsil/Adenoidectomy Gynecologic: reports: Breast reduction Exam General: Alert, Oriented x3, Cooperative Dental: Dentures full Upper, Dentures full Lower Mouth Openin Fingerbreadth Neck Mobility: Normal Mallampati classification: II Thyromental Distance: 4-6 cm Respiratory: Lungs clear, Normal breath sounds, No respiratory distress Neurological: Normal speech Mental/Cognitive Status: Alert/Oriented X3, Normal for patient Cognitive Status: Within normal limits Plan Anesthesia Type: Total IV Consent for Procedure(s) Verified and Reviewed: Yes Code Status: Attempt Resuscitation ASA classification: 3-Severe systemic disease Is this case an emergency?: No
[2021-11-05] MEDS ORDERED: PROPOFOL 500 MG/50 ML 500 MG/50 ML VIAL ONE (07:15)
[2021-11-05] MEDS ORDERED: MIDAZOLAM 2 MG/2 ML VIAL ONE (07:16)
[2021-11-05 09:03] VITALS: BP 123/76
--- NOTE | 2021-11-05 09:07 | ANESTHESIA POST OP EVALUATION ---
Anesthesia Post Eval - Post Anesthesia Eval Vitals: Last Vital Signs Temp 36.6 C 11/05/21 09:00 Pulse 84 11/05/21 09:00 Resp 18 11/05/21 09:00 BP 123/76 11/05/21 09:00 Pulse Ox 99 11/05/21 09:00 CV Function Including HR & BP: Stable Pain Control: Satisfactory Nausea & Vomiting: Negative Mental Status: Baseline Respiratory Status: Airway Patent Hydration Status: Satisfactory Anesthesia Complications: None
== END 2021-11-05 06:33 | disposition home or self-care (01) ==
LOC: SDS 06:32
PROVIDERS: ATTEND Surgery
DX: R19.5 Other fecal abnormalities (principal); K64.8 Other hemorrhoids; E11.9 Type 2 diabetes mellitus without complications; E66.9 Obesity, unspecified; I10 Essential (primary) hypertension; Z68.34 Body mass index [BMI] 34.0-34.9, adult; Z79.4 Long term (current) use of insulin; Z86.010 Personal history of colon polyps; Z87.891 Personal history of nicotine dependence
CPT/HCPCS: 45378; J7120

== ENCOUNTER 2022-07-01 13:44 | Outpatient (CLI) | payer MEDICARE ==
--- NOTE | 2022-07-01 21:21 | XRAY Report ---
PROCEDURE: Knee 2 View RT INDICATIONS: RIGHT KNEE PAIN TECHNIQUE: 2 views of the right knee(s) were acquired. COMPARISON: X-ray knee 09/07/2020 FINDINGS: Bones: No fractures or dislocations. No suspicious bony lesions. There is moderate medial and mil d to moderate lateral and patellofemoral compartment narrowing. Very minimal interval progression. Sm all periarticular osteophytes are present. No erosions. Soft tissues: Minimal joint effusion. No suspicious soft tissue calcifications. IMPRESSION: Overall mild to moderate tricompartmental arthritic change. Reviewed by: Wendy King MD on 07/01/2022 9:19 PM PDT Approved by: Wendy King MD on 07/01/2022 9:19 PM PDT Station ID: [id number]
== END 2022-07-01 13:45 | disposition home or self-care (01) ==
LOC: DI 13:44
PROVIDERS: ATTEND Family Medicine
DX: M17.11 Unilateral primary osteoarthritis, right knee (principal)

== ENCOUNTER 2022-07-30 08:00 | Outpatient (CLI) | payer MEDICARE ==
--- NOTE | 2022-07-30 12:54 | XRAY Report ---
PROCEDURE: Knee 3 View RT INDICATIONS: RIGHT KNEE PAIN, BILAT AP, RIGHT PA TUNNEL, RT SUNRISE ONLY TECHNIQUE: 3 views of the right knee and one view of the left knee were acquired. COMPARISON: Right knee radiograph 07/01/2022 FINDINGS: Bones: No acute fractures or dislocations. No suspicious bony lesions. There is severe narrowing of the lateral femorotibial compartment joint space on weightbearing view with subchondral sclerosis an d marginal osteophyte formation. Moderate narrowing of the medial compartment and anterior compartmen t joint spaces is also seen with marginal osteophyte formation. There is moderate narrowing of the co ntralateral left medial femorotibial compartment joint space. Soft tissues: No suspicious soft tissue calcifications or masses. 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 Reviewed by: Frank Olmstead MD on 07/30/2022 12:52 PM PDT Approved by: Frank Olmstead MD on 07/30/2022 12:52 PM PDT Station ID: [id number]
== END 2022-07-30 23:59 | disposition home or self-care (01) ==
LOC: DI.WOS 08:00
PROVIDERS: ATTEND Physician Assistant Surgical
DX: M17.11 Unilateral primary osteoarthritis, right knee (principal)

== ENCOUNTER 2022-11-26 11:08 | Outpatient (CLI) | payer MEDICARE ==
--- NOTE | 2022-11-27 10:35 | Mammography Report ---
BILATERAL DIGITAL SCREENING MAMMOGRAM 3D/2D: 11/26/2022 CLINICAL: Routine screening. Comparison is made to exams dated: 07/19/2021 mammogram and 08/11/2012 mammogram - [facility]. There are scattered areas of fibroglandular density in both breasts (category b / 25%-50% glandular t issue). No significant masses, calcifications, or other findings are seen in either breast. There has been no significant interval change. IMPRESSION: NEGATIVE There is no mammographic evidence of malignancy. A 1 year screening mammogram is recommended. Based on the Tyrer Cuzick model (a risk assessment model) the patients lifetime risk is 3.3% and her 10 year risk is 1.7%. According to the ACR, ACS, and NCCN guidelines, an annual breast MRI exam leandro g with mammogram is recommended if the patients lifetime risk is 20% or greater. This exam was interpreted at Station ID: [id number]. NOTE: For mammograms, a report in lay terms will be sent to the patient. Approximately 15% of breast malignancies will not be visualized mammographically. In the management of a palpable breast mass, a negative mammogram must not discourage biopsy of a clinically suspicious lesion. Electronically Signed By: Branden marcelo/dolly:11/26/2022 20:56:53 letter sent: No_Letter ACR BI-RADS Category 1: Negative 3341F PARENCHYMAL PATTERN: (A) - The breast(s) demonstrate(s) scattered fibroglandular densities. BI-RADS CATEGORY: (1) - 1 Mammogram [id number] 1 year screening LATERALITY: (B)
== END 2022-11-26 11:09 | disposition home or self-care (01) ==
LOC: DI 11:08
DX: Z12.31 Encounter for screening mammogram for malignant neoplasm of breast (principal)

== ENCOUNTER 2023-04-08 14:02 | Outpatient (CLI) | payer MEDICARE ==
--- NOTE | 2023-04-08 20:52 | DEXA Report ---
PROCEDURE: Dexa Spine and/or Hip INDICATIONS: POST MENOPAUSAL TECHNIQUE: Dual energy x-ray absorptiometry (DXA) was performed on a [employer] System. Regions measur ed are the AP Spine, femoral neck, and if needed forearm. COMPARISON: None FINDINGS: Lumbar Spine: Bone Mineral Density 0.925 g/cm/cm,T score -2.1. Left Femoral Neck: Bone Mineral Density 0.633 g/cm/cm, T score -2.9. Left Hip: Bone Mineral Density 0.761 g/cm/cm,T score -2.0. (T score greater or equal to -1.0: NORMAL) (T score from -1.1 to -2.4: OSTEOPENIA) (T score less than or equal to -2.5 to: OSTEOPOROSIS) Impression: By WHO criteria, this patient has osteoporosis. Patients with diagnosis of osteoporosis or osteopenia should have regular bone mineral density assess ment. For those eligible for Medicare, routine testing is allowed once every 2 years. Testing frequ ency can be increased for patients who have rapidly progressing disease or for those who are receivin g medical therapy to restore bone mass. Reviewed by: Tito Sanders MD on 04/08/2023 8:51 PM PST Approved by: Tito Sanders MD on 04/08/2023 8:51 PM PST Station ID: [id number]
== END 2023-04-08 14:03 | disposition home or self-care (01) ==
LOC: DI 14:02
PROVIDERS: ATTEND Physician Assistant Medical
DX: M81.0 Age-related osteoporosis without current pathological fracture (principal); Z78.0 Asymptomatic menopausal state

== ENCOUNTER 2023-05-06 14:55 | Outpatient (CLI) | payer MEDICARE ==
--- NOTE | 2023-05-06 17:56 | XRAY Report ---
PROCEDURE: Lumbar Spine 2-3V INDICATIONS: LOW BACK PAIN TECHNIQUE: 2 views of the lumbar spine were acquired. COMPARISON: None. FINDINGS: Bones: 5 [id number] vertebrae are present. There is normal bony alignment. No vertebral body compression fractures. No suspicious bony lesions. There is mild diffuse intervertebral disc space narrowing, mild osteophytosis and facet sclerosis from L3-S1. Soft tissues: Overlying bowel gas pattern is normal. No suspicious soft tissue calcifications. IMPRESSION: Degenerative change. No compression deformities. Reviewed by: Kim Jimenez MD on 05/06/2023 5:55 PM PST Approved by: Kim Jimenez MD on 05/06/2023 5:55 PM PST Station ID: [id number]
== END 2023-05-06 14:56 | disposition home or self-care (01) ==
LOC: DI 14:55
PROVIDERS: ATTEND Physician Assistant Medical
DX: M47.816 Spondylosis without myelopathy or radiculopathy, lumbar region (principal); M47.817 Spondylosis without myelopathy or radiculopathy, lumbosacral region

== ENCOUNTER 2023-10-09 15:53 | Outpatient (CLI) | payer MEDICARE ==
--- NOTE | 2023-10-09 21:54 | MRI Report ---
PROCEDURE: Lumbar Spine WO INDICATIONS: LOW BACK PAIN TECHNIQUE: Noncontrast sagittal T1 spin echo and T2 fast echo, sagittal STIR, axial T1 and T2 fast spin echo thr ough the lumbar spine. In cases with scoliosis, additional coronal T2 fast spin echo may be performe d. COMPARISON: Lumbar spine plain films dated 05/06/2023. FINDINGS: Image quality: Excellent. Alignment and Curvature: Trace anterolisthesis of L3 on L4 and L4 on L5. Gentle dextrocurvature cente red at L2-L3. Rudimentary S1-S2 disc. Bone Marrow: Marrow is of normal overall signal. No acute vertebral body compression fractures. Spinal Cord: Conus medullaris terminates at the L1 level. Visualized cord demonstrates normal signa l and size. Paraspinous Soft Tissues: No paravertebral masses. T12-L1: Normal in appearance. L1-L2: Normal in appearance. L2-L3: Mild disc bulge with superimposed mild right paracentral superior disc extrusion. Facet hyp ertrophy. Mild central canal stenosis. There is a mild degree of impingement on right L3 nerve in the right lateral recess. Reference axial image 15 of the T2 series 8. No significant foraminal stenosis . L3-L4: Trace anterolisthesis. Moderate diffuse disc bulge. Facet hypertrophy. Moderate to severe ca nal stenosis. Reference axial image 15 of series 8. There is an extruded disc fragment present in the left foramen impinging on the left L3 nerve root in the left foramen. There is also a far left later al disc protrusion. The free disc fragment measures approximately 0.5 x 0.8 x 0.3 cm. Reference sagit alie image 13 of series 3 and axial T2 image 28 of series 8. L4-L5: Anterolisthesis of L4 on L5. Moderate diffuse disc bulge. Prominent facet and ligament hyper trophy. Severe central canal stenosis. Reference sagittal image 10 of series 3 and axial image 34 of series 8. There is a left foraminal disc protrusion which slightly impinges on the left L4 nerve root in the left foramen. There is moderate right foraminal narrowing.. L5-S1: Disc bulge. Facet and ligament hypertrophy. Mild canal stenosis. Moderate right foraminal na rrowing and mild to moderate left foraminal narrowing. IMPRESSION: 1. Multilevel underlying facet arthropathy. 2. At L3-L4, there is moderate to severe canal stenosis. There is also a extruded disc fragment in th e left foramen impinging on the left L3 nerve root in the left foramen. 3. At L4-L5, there is severe canal stenosis. A left foraminal disc protrusion slightly impinges on th e left and the left foramen. 4. There is also mild canal stenosis at L2-L3 and L3-L4. 5. At L2-L3, there is mild impingement on the right L3 nerve root in the right lateral recess by smal l right paracentral disc extrusion. Reviewed by: Tito Sanders MD on 10/09/2023 9:53 PM PDT Approved by: Tito Sanders MD on 10/09/2023 9:53 PM PDT Station ID: [id number]
== END 2023-10-09 15:54 | disposition home or self-care (01) ==
LOC: DI 15:53
PROVIDERS: ATTEND Physician Assistant Medical
DX: M51.16 Intervertebral disc disorders with radiculopathy, lumbar region (principal); M48.061 Spinal stenosis, lumbar region without neurogenic claudication; M47.26 Other spondylosis with radiculopathy, lumbar region; M43.16 Spondylolisthesis, lumbar region; M51.37 Other intervertebral disc degeneration, lumbosacral region; M48.07 Spinal stenosis, lumbosacral region; M47.817 Spondylosis without myelopathy or radiculopathy, lumbosacral region